=== PATIENT | male | born 1970 | race Caucasian/White ===

== ENCOUNTER 2017-03-13 13:05 | Emergency (ER) | payer MEDICAID ==
[2017-03-13 16:00] VITALS: BP 126/71
== END 2017-03-13 16:00 | disposition home or self-care (01) ==
LOC: ED 13:05
DX: S63.501A Unspecified sprain of right wrist, initial encounter (principal); F10.20 Alcohol dependence, uncomplicated; K74.60 Unspecified cirrhosis of liver; V89.2XXA Person injured in unspecified motor-vehicle accident, traffic, initial encounter; Y93.I9 Activity, other involving external motion; Y99.8 Other external cause status; Y92.89 Other specified places as the place of occurrence of the external cause
CPT/HCPCS: J1885

== ENCOUNTER 2017-08-12 11:14 | Emergency (ER) | payer MEDICAID ==
[~2017-08-12] VITALS: Ht 177.8 cm; Wt 93.4 kg
[2017-08-12 11:16] VITALS: Ht 177.8 cm; Wt 93.4 kg
[2017-08-12 12:27] VITALS: BP 138/87
== END 2017-08-12 12:30 | disposition home or self-care (01) ==
LOC: ED 11:14
DX: J20.9 Acute bronchitis, unspecified (principal); K74.60 Unspecified cirrhosis of liver
CPT/HCPCS: J7613; J7644; Q0092

== ENCOUNTER 2018-09-15 16:35 | Emergency (ER) | payer MEDICAID ==
[~2018-09-15] VITALS: Ht 177.8 cm; Wt 106.6 kg
[2018-09-15 17:38] VITALS: Ht 177.8 cm; Wt 106.6 kg
[2018-09-15 19:47] VITALS: BP 134/93
== END 2018-09-15 19:47 | disposition home or self-care (01) ==
LOC: ED 16:35
DX: L02.415 Cutaneous abscess of right lower limb (principal); K74.60 Unspecified cirrhosis of liver

== ENCOUNTER 2019-08-08 10:11 | Emergency (ER) | payer MEDICAID ==
[~2019-08-08] VITALS: Ht 177.8 cm; Wt 110.2 kg
[2019-08-08 10:18] VITALS: Ht 177.8 cm; Wt 110.2 kg
[2019-08-08 12:22] VITALS: BP 128/74
== END 2019-08-08 12:22 | disposition home or self-care (01) ==
LOC: ED 10:11
DX: R05 Cough (principal); K74.60 Unspecified cirrhosis of liver